=== PATIENT | female | born 1980 | race Caucasian/White ===

== ENCOUNTER 2019-11-03 22:53 | Emergency (ER) | payer OTHER ==
[~2019-11-03] VITALS: Ht 170.2 cm; Wt 90.7 kg
[2019-11-03 23:15] VITALS: BP_SYST 159
--- NOTE | 2019-11-03 23:15 | NUR ---
Pt ambulatory to bed 7 for evaluation
[2019-11-03] MEDS ORDERED: PREG75CA PO (23:26)
[2019-11-03] MEDS ORDERED: PERC10 PO (23:27)
[2019-11-03] MEDS ORDERED: GABA800T PO (23:27)
--- NOTE | 2019-11-03 23:30 | NUR ---
ER Dr. Faria at bedside examining patient.
--- NOTE | 2019-11-03 23:37 | NUR ---
Pt presents to ER with c/o back pain. Pt states she had a spinal fusion "years ago." Pt states she has had chronic back pain since. Pt states pain started 1 week ago and has been trying to overcome the pain but states, "I cannot get past this pain, its too bad." Pt states the back pain feels like "fire all over my back and pins and needles are stabbing me." Pt states pain radiates to arms and is worse in her left arm. Pt states numbness in finger tips. Cap refill <3 seconds, pt can move all fingers when asked. Pt states pain is 10/10.
[2019-11-03] MEDS ORDERED: MORPHINE SULFATE 10 MG/ML VIAL IM ONE (23:45)
[2019-11-03] MEDS ORDERED: DIPHENHYDRAMINE INJ 50 MG/ML VIAL IM ONE (23:45)
[2019-11-03] MEDS ORDERED: KETOROLAC TROMETHAMINE 60 MG/2 ML VIAL IM ONE (23:45)
[2019-11-04 00:32] VITALS: BP_SYST 150
--- NOTE | 2019-11-04 00:32 | NUR ---
Patient given written and verbal discharge instructions and verbalizes understanding. ER MD Faria discussed with patient the results and treatment provided. Patient in stable condition. ID arm band removed. No Rx given. Patient educated on pain management and to follow up with PMD. Pain Scale 2/10. Opportunity for questions provided and answered. Medication side effect fact sheet provided.
== END 2019-11-04 00:32 | disposition home or self-care (01) ==
LOC: SED 22:53
DX: G62.9 Polyneuropathy, unspecified (principal); M54.6 Pain in thoracic spine; Z79.899 Other long term (current) drug therapy
CPT/HCPCS: 96372; 99283; J1200; J1885; J2270

== ENCOUNTER 2019-12-18 18:34 | Emergency (ER) | payer OTHER ==
[~2019-12-18] VITALS: Ht 170.2 cm; Wt 86.2 kg
[~2019-12-18 18:34] MED LIST: GABA800T PO; PERC10 PO; PREG75CA PO
--- NOTE | 2019-12-18 18:34 | NUR ---
Patient to ER bed H1 to gown for evaluation. Side rails up. Report given to
--- NOTE | 2019-12-18 18:35 | NUR ---
ekg done and given to
[2019-12-18 18:45] VITALS: BP_SYST 131
--- NOTE | 2019-12-18 19:11 | NUR ---
Pt moved to bed 05
[2019-12-18 19:41] LABS: BASOPHILS % (AUTO) 0.2 % (0.0-2.0); HEMATOCRIT 42.1 % (36-48); LYMPHOCYTES # (AUTO) 0.8 K/uL (1.0-5.5); LYMPHOCYTES % (AUTO) 9.9 % (20.5-51.5); MEAN CORPUSCULAR HEMOGLOBIN 30 pg (27-31); MEAN CORPUSCULAR HGB CONC 33 % (32-36); MEAN CORPUSCULAR VOLUME 89 fL (79.0-98.0); MONOCYTES # (AUTO) 0.2 K/uL (0.0-1.0); MONOCYTES % (AUTO) 2.1 % (1.7-9.3); NEUTROPHILS # (AUTO) 6.9 K/uL (1.8-7.7); NEUTROPHILS % (AUTO) 87.8 % (40.0-70.0); PLATELET COUNT (AUTO) 249 K/uL (130-430); RED BLOOD CELL COUNT(AUTO) 4.74 MIL/uL (4.2-6.2); RED CELL DISTRIBUTION WIDTH 14.2 % (9.0-15.0); WHITE BLOOD COUNT (AUTO) 7.8 K/uL (4.8-10.8)
[2019-12-18] MEDS ORDERED: NITROGLYCERIN 0.4 MG TAB.SUBL SL ONE (20:00)
--- NOTE | 2019-12-18 20:00 | NUR ---
ER Dr. Bright at bedside examining patient.
[2019-12-18] MEDS ORDERED: NACL 0.9% 1,000 ML IV ONE (20:15)
[2019-12-18 20:36] LABS: ALANINE AMINOTRANSFERASE 29 U/L (12-78); ALBUMIN 3.9 g/dL (3.4-4.8); ANION GAP 10 (5-15); ASPARTATE AMINOTRANSFERASE 22 U/L (10-37); CALCIUM 8.9 mg/dL (8.4-11.0); CHLORIDE 105 mmol/L (98-107); CREATININE 0.69 mg/dL (0.55-1.30); GLUCOSE 207 mg/dL (70-99); POTASSIUM 3.7 mmol/L (3.5-5.1); PROTHROMBIN TIME 9.9 SECS (9.5-12.5); SODIUM SERUM 137 mmol/L (136-145); TOTAL BILIRUBIN 0.3 mg/dL (0.0-1.0); UREA NITROGEN, BLOOD 9 mg/dL (8-21)
[2019-12-18 20:38] LABS: GFR AFRICAN AMERICAN 123 mL/min (>90)
--- NOTE | 2019-12-18 20:45 | NUR ---
Pt medicated with nitroglycerin SL per MD order. Tolerated well. WIll cont. to monitor on cardiac/O2.
--- NOTE | 2019-12-18 20:50 | NUR ---
Pt states she still feels chest tightness. Pt medicated with nitroglycerin SL per MD order. Tolerated well. WIll cont. to monitor on cardiac/O2.
--- NOTE | 2019-12-18 20:55 | NUR ---
Pt states she still feels chest tightness. Pt medicated with nitroglycerin SL per MD order. Tolerated well. WIll cont. to monitor on cardiac/O2.
--- NOTE | 2019-12-18 21:00 | NUR ---
Pt states that she still feels chest tightness. ER MD Dr. Bright made aware.
--- NOTE | 2019-12-18 21:39 | NUR ---
Pt states she is having "chest tightness." ER MD made aware. HR is 105 O2 sat is 99 RR 15
[2019-12-18] MEDS ORDERED: LORazepam 2 MG/ML VIAL IVP ONE (21:45)
--- NOTE | 2019-12-18 23:21 | NUR ---
Pt resting comfortably in bed, no signs of acute distress. Will cont. to cardiac / O2 monitor.
[2019-12-18] MEDS ORDERED: KETOROLAC TROMETHAMINE 30 MG VIAL IVP ONE (23:30)
--- NOTE | 2019-12-18 23:57 | NUR ---
PT ambulated with steady gait to bathroom. Urine specimen collected.
--- NOTE | 2019-12-19 01:00 | NUR ---
PT sleeping in bed, no signs of acute distress. Will cont. to monitor.
--- NOTE | 2019-12-19 01:29 | NUR ---
Dr. Bright at bedside speaking to patient.
--- NOTE | 2019-12-19 01:30 | NUR ---
Per Dr. Bright, pt feels "better and would like to go home."
[2019-12-19 01:49] VITALS: BP_SYST 141
--- NOTE | 2019-12-19 01:49 | NUR ---
Patient given written and verbal discharge instructions and verbalizes understanding. ER MD Dr. Bright discussed with patient the results and treatment provided. Patient in stable condition. ID arm band removed. IV catheter removed intact and dressing applied, no active bleeding. Rx of ativan given. Patient educated on pain management and to follow up with PMD. Pain Scale 0/10. Opportunity for questions provided and answered. Medication side effect fact sheet provided.
== END 2019-12-19 01:49 | disposition home or self-care (01) ==
LOC: SED 18:34
DX: F41.9 Anxiety disorder, unspecified (principal); R00.2 Palpitations; R07.89 Other chest pain
CPT/HCPCS: 36415; 71045; 80053; 84145; 84484; 84703; 85025; 85379; 85610; 85730; 93005; 96374; 96375; 99284; J1885; J2060; J7030

== ENCOUNTER 2019-12-29 20:35 | Emergency (ER) | payer OTHER ==
[~2019-12-29] VITALS: Ht 170.2 cm; Wt 90.7 kg
[2019-12-29 20:40] VITALS: BP_SYST 151
[2019-12-29] MEDS ORDERED: HYDROcodone/ACETAMIN 10-325 MG TAB PO ONE (21:45)
[2019-12-29] MEDS ORDERED: KETOROLAC TROMETHAMINE 15 MG VIAL IM ONE (21:45)
[2019-12-29] MEDS ORDERED: LIDOCAINE PATCH 5% 1 EA TP ONE (23:00)
[2019-12-30 00:47] VITALS: BP_SYST 132
[2019-12-30] MEDS ORDERED: LIDOCAINE PATCH 5% 1 EA TP SCH (09:00)
== END 2019-12-29 23:00 | disposition home or self-care (01) ==
LOC: SED 20:35
DX: M54.42 Lumbago with sciatica, left side (principal); G89.29 Other chronic pain; Z79.899 Other long term (current) drug therapy
CPT/HCPCS: 96372; 99283; J1885